=== PATIENT | female | born 1990 | race Caucasian/White ===

== ENCOUNTER 2019-05-14 04:53 | Inpatient (IN) | payer OTHER ==
[2019-05-14] MEDS: LACTATED RINGER'S 1,000 ML IV ×2 (05:11→13:39)
[2019-05-14 05:29] LABS: ADD MAN DIFF? NO
[2019-05-14] MEDS ORDERED: METHYLERGONOVINE 0.2 MG INJ IM ×2 (05:30→13:30)
[2019-05-14] MEDS ORDERED: CEFAZOLIN 2 GM/50 ML (PMX) 50 ML IVPB (05:30)
[2019-05-14] MEDS ORDERED: MISOPROSTOL 200 MCG TAB PR ×2 (05:30→13:30)
[2019-05-14] MEDS ORDERED: CARBOPROST 250 MCG INJ IM ×2 (05:30→13:30)
[2019-05-14] MEDS ORDERED: OXYTOCIN 30 UNITS/LR 500 ML IV ×2 (05:30→13:30)
[2019-05-14 05:34] LABS: ABNORMAL IP MESSAGE 1; BASOPHIL # 0.1 10^3/ul (0.0-0.1); BASOPHILS % 0.3 % (0.0-2.0); EOSINOPHILS # 0.4 10^3/ul (0.0-0.5); HEMATOCRIT 32.5 % (37.0-47.0); HEMOGLOBIN 10.6 g/dl (12.0-16.0); LYMPHOCYTES # 4.8 10^3/ul (0.8-2.9); LYMPHOCYTES % 26.3 % (15.0-51.0); MEAN CORPUSCULAR HGB CONC 32.6 g/dl (32.0-37.0); MEAN PLATELET VOLUME 9.8 fl (7.4-10.4); MONOCYTE # 1.6 10^3/ul (0.3-0.9); MONOCYTES % 9.1 % (0.0-11.0); NEUTROPHILS % 60.8 % (39.0-77.0); NUCLEATED RED BLOOD CELLS% 0.2 /100WBC (0.0-0.0); PLATELET COUNT 356 10^3/UL (140-415); RED BLOOD COUNT 3.78 10^6/ul (4.20-5.40); RED CELL DISTRIBUTION WIDTH 14.1 % (11.5-14.5)
[2019-05-14 05:41] LABS: POSITIVE DIFF @See below
[2019-05-14 05:46] LABS: INR 0.94; PARTIAL THROMBOPLASTIN TIME 28.1 Sec (23.0-35.0); PROTIME 12.7 Sec (11.9-14.9)
[2019-05-14] MEDS ORDERED: DEXAMETHASONE 4 MG/ML 1 ML INJ (05:58)
[2019-05-14] MEDS ORDERED: FAMOTIDINE 20 MG INJ (05:58)
[2019-05-14] MEDS ORDERED: ONDANSETRON 4 MG INJ (05:58)
[2019-05-14] MEDS ORDERED: MIDAZOLAM 1 MG/ML 2 ML INJ (05:58)
[2019-05-14] MEDS ORDERED: ONDANSETRON 4 MG INJ IV (06:30)
[2019-05-14] MEDS ORDERED: KETOROLAC 30 MG INJ IV (06:30)
[2019-05-14] MEDS ORDERED: HYDROmorphONE 1 MG/5 ML IV SYRINGE IV (06:30)
[2019-05-14] MEDS ORDERED: LORAZEPAM 2 MG INJ IV (06:30)
[2019-05-14] MEDS ORDERED: MEPERIDINE 25 MG INJ IV (06:30)
[2019-05-14] MEDS ORDERED: DIPHENHYDRAMINE 50 MG INJ IV ×2 (06:30→13:30)
[2019-05-14 06:33] LABS: HEPATITIS B SURFACE ANTIGEN NEGATIVE (NEGATIVE)
[2019-05-14 07:09] LABS: AMPHETAMINE/METHAMPHETAMINE Negative (NEGATIVE); BARBITURATES Negative (NEGATIVE); BENZODIAZEPINES Negative (NEGATIVE); CANNABINOIDS Negative (NEGATIVE); COCAINE Negative (NEGATIVE); OPIATES Negative (NEGATIVE)
[2019-05-14] MEDS: HYDROmorphONE 1 MG/5 ML IV SYRINGE IV ×3 (07:55→09:26)
[2019-05-14 08:24] LABS: HEPATITIS C VIRAL ANTIBODY NEGATIVE (NEGATIVE)
[2019-05-14 08:24] LABS: HIV 1&2 ANTIBODY NEGATIVE (NEGATIVE)
[2019-05-14] MEDS: OXYTOCIN 30 UNITS/LR 500 ML IV (09:19)
[2019-05-14] MEDS ORDERED: LANOLIN HPA 1 PKT TOP (13:30)
[2019-05-14] MEDS ORDERED: ZOLPIDEM 5 MG TAB PO (13:30)
[2019-05-14] MEDS: OXYCODONE/ACETAMINOPHEN (5/325) TAB PO ×2 (13:39→17:47)
[2019-05-14] MEDS: IBUPROFEN 600 MG TAB PO ×2 (13:44→17:48)
[2019-05-14] MEDS: SENNA/DOCUSATE NA (8.6MG/50MG) TAB PO (20:27)
[2019-05-14 21:46] LABS: RAPID PLASMA REAGIN NONREACTIVE (NR)
[2019-05-15 05:40] LABS: ADD MAN DIFF? NO
[2019-05-15 05:49] LABS: BASOPHILS % 0.2 % (0.0-2.0); EOSINOPHILS % 0.1 % (0.0-7.0); HEMATOCRIT 23.8 % (37.0-47.0); HEMOGLOBIN 7.7 g/dl (12.0-16.0); LYMPHOCYTES # 2.4 10^3/ul (0.8-2.9); LYMPHOCYTES % 12.5 % (15.0-51.0); MEAN CORPUSCULAR HEMOGLOBIN 28.3 pg (29.0-33.0); MEAN CORPUSCULAR HGB CONC 32.4 g/dl (32.0-37.0); MEAN CORPUSCULAR VOLUME 87.5 fl (82.0-101.0); MEAN PLATELET VOLUME 10.4 fl (7.4-10.4); MONOCYTE # 1.2 10^3/ul (0.3-0.9); MONOCYTES % 6.5 % (0.0-11.0); NEUTROPHIL # 15.2 10^3/ul (1.6-7.5); NEUTROPHILS % 80.1 % (39.0-77.0); PLATELET COUNT 313 10^3/UL (140-415); RED BLOOD COUNT 2.72 10^6/ul (4.20-5.40); RED CELL DISTRIBUTION WIDTH 14.1 % (11.5-14.5)
[2019-05-15] MEDS: IBUPROFEN 600 MG TAB PO ×5 (06:00→23:59)
[2019-05-15] MEDS: OXYCODONE/ACETAMINOPHEN (5/325) TAB PO ×3 (07:07→19:41)
[2019-05-15] MEDS: SENNA/DOCUSATE NA (8.6MG/50MG) TAB PO ×2 (08:51→19:41)
[2019-05-16] MEDS: OXYCODONE/ACETAMINOPHEN (5/325) TAB PO ×2 (01:46→22:05)
[2019-05-16 05:33] LABS: ADD MAN DIFF? NO
[2019-05-16 05:38] LABS: BASOPHILS % 0.2 % (0.0-2.0); EOSINOPHILS # 0.1 10^3/ul (0.0-0.5); EOSINOPHILS % 0.8 % (0.0-7.0); HEMATOCRIT 24.5 % (37.0-47.0); LYMPHOCYTES # 3.6 10^3/ul (0.8-2.9); LYMPHOCYTES % 21.3 % (15.0-51.0); MEAN CORPUSCULAR HEMOGLOBIN 28.3 pg (29.0-33.0); MEAN CORPUSCULAR HGB CONC 32.7 g/dl (32.0-37.0); MEAN CORPUSCULAR VOLUME 86.6 fl (82.0-101.0); MEAN PLATELET VOLUME 9.9 fl (7.4-10.4); MONOCYTE # 1.3 10^3/ul (0.3-0.9); MONOCYTES % 7.4 % (0.0-11.0); NEUTROPHIL # 11.9 10^3/ul (1.6-7.5); NEUTROPHILS % 69.6 % (39.0-77.0); PLATELET COUNT 360 10^3/UL (140-415); RED BLOOD COUNT 2.83 10^6/ul (4.20-5.40); RED CELL DISTRIBUTION WIDTH 14.4 % (11.5-14.5)
[2019-05-16 05:38] LABS: WHITE BLOOD COUNT 17.1 10^3/ul (4.8-10.8)
[2019-05-16] MEDS ORDERED: ONDANSETRON 4 MG INJ IV (06:00)
[2019-05-16] MEDS: SENNA/DOCUSATE NA (8.6MG/50MG) TAB PO ×2 (09:32→22:05)
[2019-05-16] MEDS: IBUPROFEN 600 MG TAB PO ×3 (09:36→17:46)
[2019-05-17 05:33] LABS: ADD MAN DIFF? NO
[2019-05-17 05:40] LABS: BASOPHILS % 0.2 % (0.0-2.0); EOSINOPHILS # 0.2 10^3/ul (0.0-0.5); EOSINOPHILS % 1.6 % (0.0-7.0); HEMATOCRIT 26.6 % (37.0-47.0); HEMOGLOBIN 8.6 g/dl (12.0-16.0); LYMPHOCYTES # 3.9 10^3/ul (0.8-2.9); LYMPHOCYTES % 32.2 % (15.0-51.0); MEAN CORPUSCULAR HGB CONC 32.3 g/dl (32.0-37.0); MEAN CORPUSCULAR VOLUME 86.6 fl (82.0-101.0); MEAN PLATELET VOLUME 9.7 fl (7.4-10.4); MONOCYTE # 0.8 10^3/ul (0.3-0.9); MONOCYTES % 6.4 % (0.0-11.0); NEUTROPHIL # 7.1 10^3/ul (1.6-7.5); NEUTROPHILS % 58.9 % (39.0-77.0); PLATELET COUNT 405 10^3/UL (140-415); RED BLOOD COUNT 3.07 10^6/ul (4.20-5.40); RED CELL DISTRIBUTION WIDTH 14.3 % (11.5-14.5)
[2019-05-17 05:40] LABS: WHITE BLOOD COUNT 12.1 10^3/ul (4.8-10.8)
[2019-05-17] MEDS: IBUPROFEN 600 MG TAB PO ×4 (05:54→12:53)
[2019-05-17 06:52] LABS: ADD UMIC YES; UR ASCORBIC ACID NEGATIVE (NEGATIVE); UR BACTERIA FEW /HPF (NONE SEEN); UR BILIRUBIN (Dip) NEGATIVE (NEGATIVE); UR BLOOD (Dip) 3+ mg/dL (NEGATIVE); UR CLARITY SLIGHTLY CLOUDY (CLEAR); UR COLOR YELLOW (YELLOW); UR GLUCOSE (Dip) NEGATIVE (NEGATIVE); UR KETONES (Dip) NEGATIVE (NEGATIVE); UR LEUKOCYTE ESTERASE (Dip) 1+ Leu/ul (NEGATIVE); UR NITRITE (Dip) NEGATIVE (NEGATIVE); UR NONSQUAMOUS EPITHELIAL CELL 1 /HPF (NONE SEEN); UR RBC > 182 /HPF (0-5); UR SPECIFIC GRAVITY (Dip) 1.015 (1.003-1.030); UR SQUAMOUS EPITHELIAL CELL FEW /HPF (FEW); UR TOTAL PROTEIN (Dip) 2+ mg/dl (NEGATIVE); UR UROBILINOGEN (Dip) NEGATIVE (NEGATIVE); UR WBC 54 /HPF (0-5)
[2019-05-17] MEDS: DIPHTH/TET/ACEL PERTUSS (ADULT) 0.5 ML VIAL IM* (09:00)
[2019-05-17] MEDS: SENNA/DOCUSATE NA (8.6MG/50MG) TAB PO (09:00)
== END 2019-05-17 13:55 | disposition home or self-care (01) | DRG 788 ==
LOC: OBT 04:53 → L-D 04:55 → OBT 05:00 → L-D 05:00 → 2NE 11:35
PROVIDERS: Obstetrics & Gynecology
PROC: 10D00Z1 Extraction of Products of Conception, Low, Open Approach (ICD-10-PCS; principal; 2019-05-14 05:45)
DX: O35.1XX0 Maternal care for (suspected) chromosomal abnormality in fetus, not applicable or unspecified (principal); Z3A.39 39 weeks gestation of pregnancy; Z37.0 Single live birth
CPT/HCPCS: 76815; 80307; 81001; 85025; 85610; 85730; 86592; 86703; 86803; 86850; 86900; 86901; 87070; 87086; 87340; 88307; 90715; 99464